=== PATIENT | male | born 1975 | race Caucasian/White ===

== ENCOUNTER 2018-09-18 07:51 | Outpatient (CLI) | payer OTHER | END 2018-09-18 07:52 | disposition home or self-care (01) | LOC: LAB 07:51 ==

== ENCOUNTER 2018-12-01 08:38 | Outpatient (CLI) | payer OTHER | END 2018-12-01 08:39 | disposition home or self-care (01) | LOC: LAB 08:38 ==

== ENCOUNTER 2019-01-20 07:37 | Outpatient (CLI) | payer OTHER | END 2019-01-20 07:38 | disposition home or self-care (01) | LOC: LAB 07:37 ==